=== PATIENT | male | born 1975 | race Caucasian/White ===

== ENCOUNTER 2018-08-30 22:56 | Emergency (ER) | payer BC ==
[2018-08-30] MEDS ORDERED: IBUPROFEN 200 MG TAB PO ONE (23:22)
[2018-08-30] MEDS ORDERED: IBUPROFEN 400 MG TAB ONE (23:22)
--- NOTE | 2018-08-31 00:36 | EDPHYS ---
Physician Documentation [facility] Name: Eliseo Morelos Jr Age: 42 yrs Sex: Male : 1975 Arrival Date: 08/30/2018 Time: 23:02 Bed 14 Private MD: ED Physician Noe Quesada HPI: 08/31 01:03 This 42 yrs old Male presents to ER via Ambulatory with complaints of Fever. kb 01:03 The patient reports fever, that was measured at 103 degrees Fahrenheit, with an kb emergency department temperature of 102.4 degrees Fahrenheit. Onset: The symptoms/episode began/occurred 2 day(s) ago. Modifying factors: there are no obvious modifying factors. Associated signs and symptoms: Pertinent positives: chills, bodyaches. Severity of symptoms: At their worst the symptoms were mild moderate in the emergency department the symptoms are unchanged. The patient has not experienced similar symptoms in the past. The patient has not recently seen a physician. Historical: - Allergies: 08/30 23:22 No Known Allergies; tl3 - Home Meds: 23:22 diclofenac sodium 75 mg oral TbEC 1 tab 2 times per day [Active]; olmesartan oral oral tl3 1 tab daily [Active]; fluticasone inhalation inhalation 2 times per day [Active]; - PMHx: 23:22 Hypertension; tl3 - Immunization history:: Adult Immunizations up to date. - Social history:: Smoking status: Patient/guardian denies using tobacco, never smoked. - Ebola Screening: : No symptoms or risks identified at this time. ROS: 08/31 01:03 ENT: Negative for injury, pain, and discharge, Neck: Negative for injury, pain, and kb swelling, Cardiovascular: Negative for chest pain, palpitations, and edema, Respiratory: Negative for shortness of breath, cough, wheezing, and pleuritic chest pain, Abdomen/GI: Negative for abdominal pain, nausea, vomiting, diarrhea, and constipation, Back: Negative for injury and pain, MS/Extremity: Negative for injury and deformity, Skin: Negative for injury, rash, and discoloration, Neuro: Negative for headache, weakness, numbness, tingling, and seizure. Constitutional: Positive for body aches, chills, fever, Negative for fatigue, malaise, poor PO intake, weight loss. Exam: 01:03 Constitutional: This is a well developed, well nourished patient who is awake, alert, kb and in no acute distress. Head/Face: Normocephalic, atraumatic. ENT: Nares patent. No nasal discharge, no septal abnormalities noted. Tympanic membranes are normal and external auditory canals are clear. Oropharynx with no redness, swelling, or masses, exudates, or evidence of obstruction, uvula midline. Mucous membranes moist. Neck: Trachea midline, no thyromegaly or masses palpated, and no cervical lymphadenopathy. Supple, full range of motion without nuchal rigidity, or vertebral point tenderness. No Meningismus. Chest/axilla: Normal chest wall appearance and motion. Nontender with no deformity. No lesions are appreciated. Cardiovascular: Regular rate and rhythm with a normal S1 and S2. No gallops, murmurs, or rubs. Normal PMI, no JVD. No pulse deficits. Respiratory: Lungs have equal breath sounds bilaterally, clear to auscultation and percussion. No rales, rhonchi or wheezes noted. No increased work of breathing, no retractions or nasal flaring. Abdomen/GI: Soft, non-tender, with normal bowel sounds. No distension or tympany. No guarding or rebound. No evidence of tenderness throughout. Skin: Warm, dry with normal turgor. Normal color with no rashes, no lesions, and no evidence of cellulitis. MS/ Extremity: Pulses equal, no cyanosis. Neurovascular intact. Full, normal range of motion. Neuro: Awake and alert, GCS 15, oriented to person, place, time, and situation. Cranial nerves II-XII grossly intact. Motor strength 5/5 in all extremities. Sensory grossly intact. Cerebellar exam normal. Normal gait. Vital Signs: 08/30 23:22 BP 140 / 90; Pulse 96; Resp 18; Temp 102.4(O); Pulse Ox 96% ; Weight 143.79 kg; Height tl3 6 ft. 1 in. (185.42 cm); 08/31 00:19 BP 148 / 89; Pulse 84; Resp 16; Temp 100.2(O); Pulse Ox 97% on R/A; Pain 0/10; ao 00:19 Temp 100.2(O); ao 00:48 BP 135 / 96; Pulse 78; Resp 16; Pulse Ox 98% ; ao 08/30 23:22 Body Mass Index 41.82 (143.79 kg, 185.42 cm) tl3 MDM: 08/30 23: Patient medically screened. kb 08/31 01:03 Data reviewed: vital signs, nurses notes. Data interpreted: Pulse oximetry: on room air kb is 98 %. Interpretation: normal. Counseling: I had a detailed discussion with the patient and/or guardian regarding: the historical points, exam findings, and any diagnostic results supporting the discharge/admit diagnosis, lab results, the need for outpatient follow up, a family practitioner, to return to the emergency department if symptoms worsen or persist or if there are any questions or concerns that arise at home. 08/30 23:24 Order name: Flu; Complete Time: 23:56 tl3 08/30 23:24 Order name: Strep; Complete Time: 23:52 tl3 08/30 23:53 Order name: Throat Culture EDMS Administered Medications: 08/30 23:25 Drug: Ibuprofen 600 mg Route: PO; tl3 08/31 00:19 Follow up: Temp 100.2 Oral; Response: No adverse reaction ao Disposition: 05:19 Co-signature as Attending Physician, Noe Quesada MD I agree with the assessment and tw4 plan of care. Disposition: 08/31/18 00:35 Discharged to Home. Impression: Fever, unspecified, Acute upper respiratory infection, unspecified. - Condition is Stable. - Discharge Instructions: Viral Respiratory Infection, [id number]. - Medication Reconciliation Form, Thank You Letter, Antibiotic Education, Prescription Opioid Use form. - Follow up: Emergency Department; When: As needed; Reason: Worsening of condition. Follow up: Private Physician; When: 2 - 3 days; Reason: Recheck today's complaints, Continuance of care, Re-evaluation by your physician. Signatures: Dispatcher [employer] EDMS Sangeeta Thompson FNP-C FNP-Jj Maxwell, RN RN Noe Edouard MD MD tw4 Jordyn Neal RN RN tl3 Corrections: (The following items were deleted from the chart) 00:49 00:35 08/31/2018 00:35 Discharged to Home. Impression: Fever, unspecified; Acute upper ao respiratory infection, unspecified. Condition is Stable. Forms are Medication Reconciliation Form, Thank You Letter, Antibiotic Education, Prescription Opioid Use. Follow up: Emergency Department; When: As needed; Reason: Worsening of condition. Follow up: Private Physician; When: 2 - 3 days; Reason: Recheck today's complaints, Continuance of care, Re-evaluation by your physician. kb
--- NOTE | 2018-08-31 00:36 | ER ---
Nurse's Notes [facility] Name: Eliseo Morelos Jr Age: 42 yrs Sex: Male : 1975 Arrival Date: 08/30/2018 Time: 23:02 Bed 14 Private MD: Diagnosis: Fever, unspecified;Acute upper respiratory infection, unspecified Presentation: 08/30 23:19 Presenting complaint: Patient states: Fever for two days accompanied with body aches tl3 and nausea. Transition of care: patient was not received from another setting of care. Onset of symptoms was August 29, 2018 at 07:00. Risk Assessment: Do you want to hurt yourself or someone else? Patient reports no desire to harm self or others. Initial Sepsis Screen: Does the patient meet any 2 criteria? No. Patient's initial sepsis screen is negative. Does the patient have a suspected source of infection? No. Patient's initial sepsis screen is negative. Care prior to arrival: None. 23:19 Method Of Arrival: Ambulatory tl3 23:19 Acuity: DALLIN 3 tl3 Triage Assessment: 23:22 General: Appears in no apparent distress. uncomfortable, Behavior is calm, cooperative, tl3 appropriate for age. Pain: Complains of pain in body aches, headache, hips, lower back. Historical: - Allergies: 23:22 No Known Allergies; tl3 - Home Meds: 23:22 diclofenac sodium 75 mg oral TbEC 1 tab 2 times per day [Active]; olmesartan oral oral tl3 1 tab daily [Active]; fluticasone inhalation inhalation 2 times per day [Active]; - PMHx: 23:22 Hypertension; tl3 - Immunization history:: Adult Immunizations up to date. - Social history:: Smoking status: Patient/guardian denies using tobacco, never smoked. - Ebola Screening: : No symptoms or risks identified at this time. Screenin:31 Abuse screen: Denies threats or abuse. Denies injuries from another. Nutritional ao screening: No deficits noted. Tuberculosis screening: No symptoms or risk factors identified. Fall Risk None identified. Assessment: 23:30 General: Appears in no apparent distress. comfortable, Behavior is calm, cooperative, ao appropriate for age. Pain: Complains of pain in general Pain does not radiate. Neuro: Level of Consciousness is awake, alert, obeys commands, Oriented to person, place, time, situation, Appropriate for age Moves all extremities. Full function Speech is normal, Facial symmetry appears normal. Cardiovascular: Capillary refill < 3 seconds Patient's skin is warm and dry. Respiratory: Airway is patent Respiratory effort is even, unlabored, Respiratory pattern is regular, symmetrical. GI: No signs and/or symptoms were reported involving the gastrointestinal system. : No signs and/or symptoms were reported regarding the genitourinary system. EENT: No signs and/or symptoms were reported regarding the EENT system. Derm: Skin is intact, Skin is pink, warm \T\ dry. normal, Skin temperature is warm. Musculoskeletal: Circulation, motion, and sensation intact. Range of motion: intact in all extremities. 08/31 00:19 Reassessment: Patient appears in no apparent distress at this time. Patient and/or ao family updated on plan of care and expected duration. Pain level reassessed. waiting on dispo orders. 00:48 Reassessment: Dc instructions given to patient. Patient agree with POC and to follow up ao with PCP. Vital Signs: 08/30 23:22 BP 140 / 90; Pulse 96; Resp 18; Temp 102.4(O); Pulse Ox 96% ; Weight 143.79 kg; Height tl3 6 ft. 1 in. (185.42 cm); 08/31 00:19 BP 148 / 89; Pulse 84; Resp 16; Temp 100.2(O); Pulse Ox 97% on R/A; Pain 0/10; ao 00:19 Temp 100.2(O); ao 00:48 BP 135 / 96; Pulse 78; Resp 16; Pulse Ox 98% ; ao 08/30 23:22 Body Mass Index 41.82 (143.79 kg, 185.42 cm) tl3 ED Course: 08/30 23:02 Patient arrived in ED. ag3 23:20 Triage completed. tl3 23:22 Arm band placed on right wrist. tl3 23:27 Sangeeta Thompson [facility]C [facility]. kb 23:27 Noe Quesada MD is Attending Physician. kb 23:30 Jj Romero, RN is Primary Nurse. ao 23:31 Patient has correct armband on for positive identification. Pulse ox on. NIBP on. ao 08/31 00:49 No provider procedures requiring assistance completed. Patient did not have IV access ao during this emergency room visit. Administered Medications: 08/30 23:25 Drug: Ibuprofen 600 mg Route: PO; tl3 08/31 00:19 Follow up: Temp 100.2 Oral; Response: No adverse reaction ao Outcome: 00:35 Discharge ordered by . skye 00:49 Discharged to home ambulatory. ao 00:49 Condition: stable 00:49 Discharge instructions given to patient, Instructed on discharge instructions, follow up and referral plans. Demonstrated understanding of instructions, follow-up care, medications. 00:49 Patient left the ED. ao Signatures: Sangeeta Thompson, DATA SME-C DATA SME-Jj Maxwell RN RN Jordyn Taylor RN RN tl3 Mago Olivares [facility]
== END 2018-08-31 00:49 | disposition home or self-care (01) ==
LOC: ER 22:56
DX: J06.9 Acute upper respiratory infection, unspecified (principal); I10 Essential (primary) hypertension
CPT/HCPCS: 87070; 87081; 87804; 99283